=== PATIENT | male | born 1990 | race African-American/Black ===

== ENCOUNTER 2024-04-03 03:53 | Emergency (ER) | payer SELFPAY ==
[~2024-04-03] VITALS: Ht 175.3 cm; Wt 54.0 kg
[2024-04-03 03:55] VITALS: BP 124/66; PULSE 55; RESP 18; TEMP 97.8; O2SAT 97
[2024-04-03 04:24] LABS: BASOPHILS % 0.5 % (0.0-2.0); EOSINOPHILS % 0.1 % (0.0-5.0); HEMATOCRIT. 45.5 % (42.0-52.0); HEMOGLOBIN. 15.3 g/dL (14.0-18.0); LYMPHOCYTES % 22.8 % (20.0-50.0); MEAN CORPUSCULAR HGB CONC 33.6 g/dL (31.0-37.0); MEAN CORPUSCULAR VOLUME 89.4 fL (80.0-94.0); MEAN PLATELET VOLUME 7.7 fl (7.4-10.4); MONOCYTES % 6.7 % (2.0-8.0); NEUTROPHILS % 69.9 % (40.0-76.0); PLATELET 249 x1000/uL (130-400); RED BLOOD CELL COUNT 5.09 mill/uL (4.7-6.1); RED CELL DISTRIBUTION WIDTH 14.1 % (11.6-14.6); WHITE BLOOD COUNT 4.9 x1000/uL (4.5-11.0)
[2024-04-03 04:40] LABS: PROTHROMBIN TIME 11.1 sec (9.6-11.0)
[2024-04-03 04:43] LABS: CHLORIDE 103 mEq/L (98-107); POTASSIUM 3.6 mEq/L (3.5-5.1); SODIUM 139 mEq/L (136-145)
[2024-04-03 04:45] LABS: CALCIUM 10.4 mg/dL (8.7-10.4); CARBON DIOXIDE 28 mEq/L (21-32)
[2024-04-03 04:50] LABS: GLUCOSE 97 mg/dL (70-105); UREA NITROGEN BLOOD 11 mg/dL (9-23)
[2024-04-03 04:51] LABS: ALANINE AMINOTRANSFERASE 15 IU/L (10-49); ALBUMIN 4.6 g/dL (3.2-4.8); ASPARTATE AMINOTRANSFERASE 34 IU/L (<34)
[2024-04-03 04:52] LABS: BILIRUBIN TOTAL 0.6 mg/dL (0.1-1.0); PROTEIN TOTAL 7.3 g/dL (6.0-8.3)
[2024-04-03 05:12] LABS: ETHANOL BLOOD < 10 mg/dL (<10)
[2024-04-03] MEDS ORDERED: MAGNESIUM/ALUMINUM HYDROXIDE/SIMETHICONE 30ML UDC PO ONE (05:30)
[2024-04-03] MEDS ORDERED: SODIUM CHLORIDE 0.9% 1,000 ML IV ONE (05:30)
[2024-04-03] MEDS ORDERED: ACETAMINOPHEN 325MG TABLET PO ONE (05:30)
[2024-04-03] MEDS ORDERED: ONDANSETRON HCL 4MG/2ML INJ IV ONE (05:30)
[2024-04-03] MEDS ORDERED: FAMOTIDINE 20MG TABLET PO ONE (05:30)
== END 2024-04-03 06:40 | disposition home or self-care (01) ==
LOC: ER 03:53
DX: R10.816 Epigastric abdominal tenderness (principal); R11.2 Nausea with vomiting, unspecified; F12.90 Cannabis use, unspecified, uncomplicated
CPT/HCPCS: 80053; 80320; 83690; 85025; 85610; 36415; 99283; J7030; G0480